=== PATIENT | female | born 1950 | race Caucasian/White ===

== ENCOUNTER → 2020-12-21 | Outpatient (CLI) | payer MEDICARE ==
[~2020-12-21] MED LIST: CELEXA20 MG PO; COREG25 MG PO; ELAVIL 50 MG TA50 MG PO; HYDROCODON-ACE1 EAC4 PO; TRICOR145 MG PO; VITAMIN D250000 UNIT PO
== END ==
LOC: LAB 12:14
DX: B35.5 Tinea imbricata (principal); B35.3 Tinea pedis; B25.1 Cytomegaloviral hepatitis
CPT/HCPCS: 80076

== ENCOUNTER 2021-01-20 14:41 | Emergency (ER) | payer MEDICARE | END 2021-01-20 17:20 | disposition home or self-care (01) | LOC: ER1 14:41 | DX: U07.1 COVID-19 (principal); E11.9 Type 2 diabetes mellitus without complications; I25.10 Atherosclerotic heart disease of native coronary artery without angina pectoris; N18.9 Chronic kidney disease, unspecified | CPT/HCPCS: 99283; M0239 ==

== ENCOUNTER → 2021-10-12 | Outpatient (CLI) | payer MEDICARE | LOC: KOH-I 09:01 | DX: R07.1 Chest pain on breathing (principal); W19.XXXA Unspecified fall, initial encounter | CPT/HCPCS: 71046; 71100 ==

== ENCOUNTER → 2022-01-10 | Outpatient (CLI) | payer MEDICARE | LOC: KOH-I 15:42 | DX: R07.81 Pleurodynia (principal); W19.XXXA Unspecified fall, initial encounter | CPT/HCPCS: 71101 ==

== ENCOUNTER → 2022-01-12 | Outpatient (CLI) | payer MEDICARE | LOC: KOH-I 13:48 | DX: R10.9 Unspecified abdominal pain (principal); R19.8 Other specified symptoms and signs involving the digestive system and abdomen; K74.60 Unspecified cirrhosis of liver; R16.1 Splenomegaly, not elsewhere classified; I86.8 Varicose veins of other specified sites; K31.89 Other diseases of stomach and duodenum | CPT/HCPCS: 74176 ==

== ENCOUNTER → 2022-03-23 | Outpatient (CLI) | payer MEDICARE ==
[2022-03-23 17:01] LABS: HEMOGLOBIN 8.4 gm/dl (12.3-15.3); RED BLOOD COUNT 3.81 M/UL (4.00-5.10)
[2022-03-23 17:14] LABS: WHITE BLOOD COUNT 4.4 K/UL (4.5-11.0)
== END ==
LOC: LAB 16:29
PROVIDERS: Physician Assistant
DX: R41.0 Disorientation, unspecified (principal); R10.9 Unspecified abdominal pain
CPT/HCPCS: 36415; 80048; 80076; 82140; 84443; 85025